=== PATIENT | male | born 1995 | race Caucasian/White ===

== ENCOUNTER → 2020-12-16 07:01 | Outpatient (CLI) | payer BC, SELFPAY ==
[2020-12-16 18:21] LABS: SARS-CoV-2 RNA PCR Negative
== END ==
PROVIDERS: Visit Provider Family Medicine
DX: R11.0 Nausea (principal); R53.83 Other fatigue; R50.9 Fever, unspecified; R51.9 Headache, unspecified; Z20.822 Contact with and (suspected) exposure to COVID-19
CPT/HCPCS: C9803; U0003; U0005

== ENCOUNTER → 2021-05-11 03:16 | Outpatient (CLI) | payer SELFPAY ==
[2021-05-11 18:18] LABS: SARS-CoV-2 RNA PCR Negative
== END ==
PROVIDERS: PCP Family Medicine; Visit Provider Family Medicine
DX: Z20.822 Contact with and (suspected) exposure to COVID-19 (principal); R50.9 Fever, unspecified; R51.9 Headache, unspecified; R09.89 Other specified symptoms and signs involving the circulatory and respiratory systems; J02.9 Acute pharyngitis, unspecified
CPT/HCPCS: C9803; U0003; U0005

== ENCOUNTER 2024-07-23 15:28 | Outpatient (CLI) | payer BC, SELFPAY ==
--- NOTE | ~2024-07-23 | XR_ITS ---
Left elbow Technique: AP and lateral views were obtained. Clinical History: Pain Findings: No acute fracture or dislocation is seen. Osseous alignment is anatomic. Joint spaces are p reserved. There is no displacement of the fat pads, and soft tissues are unremarkable. Impression: Unremarkable radiographs. Reviewed, dictated and finalized at location . GER WORKER Impression: Unremarkable radiographs.
--- NOTE | ~2024-07-23 | XR_ITS ---
Right Knee Technique: AP, lateral, and sunrise views were obtained. Clinical History: Pain Findings: No fracture or dislocation is seen. Osseous alignment is anatomic. Joint spaces are preserv ed without degenerative or erosive change. Soft tissues are unremarkable. No joint effusion is seen. Impression: Unremarkable right knee radiographs. Reviewed, dictated and finalized at location . ER Impression: Unremarkable right knee radiographs.
== END 2024-07-23 15:29 | disposition home or self-care (01) ==
PROVIDERS: PCP Family Medicine; Visit Provider Nurse Practitioner
DX: M25.561 Pain in right knee (principal); M25.522 Pain in left elbow
CPT/HCPCS: 73070; 73562

== ENCOUNTER 2024-10-31 12:17 | Outpatient (CLI) | payer BC, SELFPAY ==
--- NOTE | ~2024-10-31 | XR_ITS ---
Thoracic spine: Clinical Indication: Pain AP and lateral views were performed. No fracture is seen. There is normal alignment of the vertebrae. The intervertebral disc spaces appe ar normal. Paravertebral soft tissues appear normal. Impression: No significant abnormalities noted. Reviewed, dictated and finalized at [facility]. Impression: No significant abnormalities noted.
== END 2024-10-31 12:18 | disposition home or self-care (01) ==
PROVIDERS: PCP Family Medicine; Visit Provider Family Medicine
DX: M54.6 Pain in thoracic spine (principal)
CPT/HCPCS: 72072

== ENCOUNTER 2024-11-04 15:39 | Outpatient (CLI) | payer BC, SELFPAY ==
--- NOTE | ~2024-11-04 | MR_ITS ---
MRI of the right knee Clinical history: Pain Technique: Coronal proton density and proton density-weighted images, sagittal proton-density and T2 fat-sat images, and axial proton-density fat-saturated images were acquired. Following intravenous ad ministration of 18 cc ProHance gadolinium, T1-weighted fat-sat imaging was performed in the axial, co lamberto, and sagittal planes. Findings: Anterior and posterior cruciate ligaments are intact. Medial collateral ligament and the la teral collateral ligament complex are intact. Popliteus tendon is intact. Medial and lateral menisci are intact, without evidence of tear. There is mild chondromalacia along lateral patellar facet. Remaining articular cartilage is well pres erved. Bone marrow signals are unremarkable. Extensor mechanism is intact. No joint effusion. Tiny Philippe cyst present. No abnormal postcontrast enhancement identified.. Impression: Mild chondromalacia patella. Tiny Philippe's cyst. Reviewed, dictated and finalized at [facility]. Impression: Mild chondromalacia patella. Tiny Philippe's cyst.
== END 2024-11-04 15:40 | disposition home or self-care (01) ==
LOC: MICIMG 15:40
PROVIDERS: PCP Family Medicine; Visit Provider Nurse Practitioner
DX: M22.41 Chondromalacia patellae, right knee (principal); M71.21 Synovial cyst of popliteal space [Baker], right knee
CPT/HCPCS: 73723; A9579

== ENCOUNTER 2024-11-20 12:51 | Outpatient (CLI) | payer BC, SELFPAY ==
--- NOTE | ~2024-11-20 | MR_ITS ---
MRI of the thoracic spine Clinical History: Pain Technique: Axial T2-weighted and gradient images, and sagittal T1-weighted, T2-weighted, and STIR nya ges were acquired. Findings: There is no fracture or subluxation of the thoracic spine. Vertebral bodies maintain normal height and alignment. No suspicious bone marrow signal abnormality seen. There are areas of mild degenerative disc narrowing in the upper thoracic spine, but no significant d isc bulge or herniation identified. No spinal canal stenosis or cord compression seen in the thoracic spine. Neural foramina are preserved throughout the thoracic spine. No epidural mass or collection. There is minimal prominence of the central canal spinal cord from the T6-T9 levels. Paravertebral soft tissues are unremarkable. 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 Reviewed, dictated and finalized at [facility]. Impression: Minimal prominence/syrinx of the central canal of the spinal cord from the T6-T 9 levels.
== END 2024-11-20 12:52 | disposition home or self-care (01) ==
LOC: MICIMG 12:52
PROVIDERS: PCP Family Medicine; Visit Provider Family Medicine
DX: M54.6 Pain in thoracic spine (principal); R20.0 Anesthesia of skin
CPT/HCPCS: 72146

== ENCOUNTER 2025-07-30 11:02 | Outpatient (CLI) | payer BC, SELFPAY ==
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
== END 2025-07-30 11:03 | disposition home or self-care (01) ==
LOC: GOSHIMG 11:02
PROVIDERS: PCP Family Medicine; Visit Provider Family Medicine
DX: M25.511 Pain in right shoulder (principal)
CPT/HCPCS: 73030